=== PATIENT | female | born 1995 | race Caucasian/White ===

== ENCOUNTER 2019-03-11 13:51 | Emergency (ER) | payer BC ==
[2019-03-11 14:13] VITALS: BP 113/67; PULSE 86; TEMP 98.4; BMI 23.6
--- NOTE | 2019-03-11 14:16 | PDOC ---
Rapid Medical Evaluation Chief Complaint: Injury Time Seen by Provider: 03/11/19 14:13 Medical Evaluation: Vital Signs Temp Pulse Resp BP Pulse Ox 98.4 F 86 18 113/67 98 03/11/19 14:10 03/11/19 14:10 03/11/19 14:10 03/11/19 14:10 03/11/19 14:10 03/11/19 14:13 I have performed a brief in-person evaluation of this patient. The patient presents with a chief complaint of: 27wks present with complains right ankle pain s/pn twisting ankle going down stair Pertinent physical exam findings: A&O x 3 in NAD I have ordered the following: nothing The patient will proceed to the ED for further evaluation. Discharge Disposition - Diagnosis Acute right ankle pain - Discharge Dispostion Condition at time of disposition: Stable - Referrals - Patient Instructions - Post Discharge Activity
--- NOTE | 2019-03-11 14:31 | PDOC ---
History of Present Illness - General Chief Complaint: Injury Stated Complaint: RT ANKLE INJURY Time Seen by Provider: 03/11/19 14:13 - History of Present Illness Initial Comments: 03/11/19 14:27 23-year-old female without comorbidities presents for evaluation of right ankle pain. She states while walking up steps she twisted her ankle. She describes an inversion injury which occurred last night. She is . Past History - Past Medical History Anemia: No COPD: No - Immunization History Immunization Up to Date: No - Suicide/Smoking/Psychosocial Hx Smoking History: Never smoked Have you smoked in the past 12 months: No Information on smoking cessation initiated: No Hx Alcohol Use: No Drug/Substance Use Hx: No Review of Systems - Review of Systems Musculoskeletal: Yes: Joint Pain *Physical Exam - Vital Signs Last Vital Signs Temp Pulse Resp BP Pulse Ox 98.4 F 86 18 113/67 98 03/11/19 14:10 03/11/19 14:10 03/11/19 14:10 03/11/19 14:10 03/11/19 14:10 - Physical Exam Comments: 03/11/19 14:27 Right ankle skin color and temperature are normal. There is minimal lateral swelling. No tenderness about the knee proximal fibula or along its distal course. No tenderness about the medial lateral malleolus. No tenderness about the navicular base of the fifth metatarsal. Mild tenderness over the ATFL. Neurovascularly intact no instability no gross sensory motor deficits. Medical Decision Making - Medical Decision Making 03/11/19 14:28 patient declined x-rays because of . I agree with this. His unlikely there is a fracture. This is mild tenderness over the ATFL without bony tenderness. She is able to bear weight. Weight-bear as tolerated with crutches and Aircast follow-up *DC/Admit/Observation/Transfer Diagnosis at time of Disposition: Acute right ankle pain, Ankle sprain - Discharge Dispostion Disposition: HOME Condition at time of disposition: Stable Decision to Admit order: No - Referrals Referrals: Carroll Storey DO [Staff Physician] - - Patient Instructions Printed Discharge Instructions: Ankle Sprain, DI for Ankle Sprain Additional Instructions: You may weight-bear as tolerated with crutches in the Aircast. Please be advised I am unable to rule out fracture because your refusal for an x-ray. It is unlikely you have a fracture but he should follow-up with orthopedics in 1-2 days without fail for further evaluation and treatment options. Tylenol for pain as directed. - Post Discharge Activity
== END 2019-03-11 14:33 | disposition home or self-care (01) ==
LOC: JERFT 13:51
PROC: 2W3QX1Z Immobilization of Right Lower Leg using Splint (ICD-10-PCS; principal; 2019-03-11)
DX: O99.89 Other specified diseases and conditions complicating pregnancy, childbirth and the puerperium (principal); S93.401A Sprain of unspecified ligament of right ankle, initial encounter; X50.1XXA Overexertion from prolonged static or awkward postures, initial encounter; Y93.89 Activity, other specified; Y92.89 Other specified places as the place of occurrence of the external cause; Y99.8 Other external cause status; Z3A.27 27 weeks gestation of pregnancy
CPT/HCPCS: 99281-25